=== PATIENT | male | born 1995 | race Two or more races ===

== ENCOUNTER 2024-12-08 11:22 | Emergency (ER) | payer OTHER ==
[2024-12-08 11:29] VITALS: TEMP 98.3; BMI 25.2
[2024-12-08] MEDS ORDERED: METOCLOPRAMIDE HCL INJECTION 10 MG/2 ML VIAL ONE (12:23)
[2024-12-08] MEDS ORDERED: FAMOTIDINE 20 MG/50 ML IVPB 20 MG/50 ML MG IVPB ONE (12:23)
[2024-12-08] MEDS: SODIUM CHLORIDE 0.9% 500 ML INFUS.BAG IV ONE (12:48)
[2024-12-08] MEDS: FAMOTIDINE 20 MG/50 ML IVPB 20 MG/50 ML MG IVPB ONE (12:48)
[2024-12-08] MEDS: METOCLOPRAMIDE HCL INJECTION 10 MG/2 ML VIAL IVPB ONE (12:48)
[2024-12-08 12:54] LABS: ABSOLUTE IMMATURE GRANULOCYTES 0.03 x10^3/uL (0.0-0.031); BASOPHILS # 0.05 x10^3/uL (0.01-0.08); HEMATOCRIT 53.5 % (40.1-51.0); MCHC 33.6 g/dl (32.3-36.5); MEAN CELL VOLUME 79.1 fl (79.0-92.2); MEAN PLT VOLUME 10.1 fl (9.4-12.4); MONOCYTE # 1.22 x10^3/uL (0.30-0.82); MONOCYTE % 12.7 % (5.3-12.2); PLATELET COUNT 358 x10^3/uL (163-337); RDW 12.3 % (11.9-15.3)
[2024-12-08] MEDS ORDERED: ACETAMINOPHEN INJECTION 100 ML ONE (12:55)
[2024-12-08] MEDS: ACETAMINOPHEN 1000 MG/100 ML BAG IVPB ONE (13:01)
[2024-12-08 13:29] LABS: ALBUMIN 5.2 g/dl (3.4-5.0); BLOOD UREA NITROGEN 27.5 mg/dL (7-18); CALCIUM 11.1 mg/dL (8.5-10.1)
[2024-12-08 13:33] LABS: BILIRUBIN,TOTAL 3.1 mg/dL (0.2-1); CREATININE 1.4 mg/dL (0.55-1.3)
[2024-12-08 13:35] LABS: TOT PROT 9.5 g/dl (6.4-8.2)
[2024-12-08 14:19] LABS: HCV DIAGNOSTIC IN-HOUSE W/RFLX NON-REACTIVE (NONREACTIVE); HIV INTERPRETATION NEGATIVE (NEGATIVE)
[2024-12-08 14:49] LABS: ABSOLUTE IMMATURE GRANULOCYTES 0.03 x10^3/uL (0.0-0.031); BASOPHILS # 0.04 x10^3/uL (0.01-0.08); EOSINOPHIL % 0.3 % (0.8-7.0); EOSINOPHILS # 0.03 x10^3/uL (0.04-0.54); HEMATOCRIT 50.1 % (40.1-51.0); HEMOGLOBIN 16.5 g/dL (13.7-17.5); MCHC 32.9 g/dl (32.3-36.5); MEAN CELL VOLUME 80.4 fl (79.0-92.2); MEAN PLT VOLUME 9.6 fl (9.4-12.4); MONOCYTE # 1.31 x10^3/uL (0.30-0.82); MONOCYTE % 13.6 % (5.3-12.2); PLATELET COUNT 302 x10^3/uL (163-337); RDW 12.3 % (11.9-15.3)
[2024-12-08 15:12] LABS: POTASSIUM 5.4 mmol/L (3.5-5.1)
[2024-12-08 15:15] LABS: ALBUMIN 4.4 g/dl (3.4-5.0); BLOOD UREA NITROGEN 23.3 mg/dL (7-18); CALCIUM 9.9 mg/dL (8.5-10.1)
[2024-12-08 15:19] LABS: CREATININE 1.2 mg/dL (0.55-1.3)
[2024-12-08 15:20] LABS: BILIRUBIN,TOTAL 2.9 mg/dL (0.2-1)
[2024-12-08 15:21] LABS: TOT PROT 8.1 g/dl (6.4-8.2)
[2024-12-08 16:05] VITALS: BP 126/74; PULSE 94; RESP 18
== END 2024-12-08 16:06 | disposition home or self-care (01) ==
LOC: JER 11:22
PROC: 3E033GC Introduction of Other Therapeutic Substance into Peripheral Vein, Percutaneous Approach (ICD-10-PCS; principal; 2024-12-08)
PROC: 3E033GC Introduction of Other Therapeutic Substance into Peripheral Vein, Percutaneous Approach (ICD-10-PCS; 2024-12-08)
PROC: 3E033GC Introduction of Other Therapeutic Substance into Peripheral Vein, Percutaneous Approach (ICD-10-PCS; 2024-12-08)
PROC: 3E033NZ Introduction of Analgesics, Hypnotics, Sedatives into Peripheral Vein, Percutaneous Approach (ICD-10-PCS; 2024-12-08)
DX: R11.15 Cyclical vomiting syndrome unrelated to migraine (principal); R10.84 Generalized abdominal pain; R00.0 Tachycardia, unspecified
CPT/HCPCS: 36415; 80053; 83690; 85025; 86803; 87389; 99284-25; J0131

== ENCOUNTER 2024-12-11 08:41 | Emergency (ER) | payer OTHER ==
[2024-12-11 08:49] VITALS: BP 126/76; PULSE 85; RESP 20; TEMP 99.1; BMI 25.1
[2024-12-11] MEDS ORDERED: BACITRACIN ZINC 15 GM TUBE TOPICAL OINTMENT ONE (11:00)
[2024-12-11] MEDS: BACITRACIN ZINC 15 GM TUBE TOPICAL OINTMENT TP ONE (11:03)
== END 2024-12-11 12:00 | disposition home or self-care (01) ==
LOC: JERFT 08:41
PROC: 0XQJXZZ Repair Right Hand, External Approach (ICD-10-PCS; principal; 2024-12-11)
DX: S61.216A Laceration without foreign body of right little finger without damage to nail, initial encounter (principal); W26.0XXA Contact with knife, initial encounter; Y93.G1 Activity, food preparation and clean up
CPT/HCPCS: 12001-25; 99283-25